=== PATIENT | female | born 2000 | race Native Hawaiian/Other Pacific Islander ===

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

== ENCOUNTER 2023-10-13 19:22 | Emergency (ER) | payer OTHER ==
[~2023-10-13] VITALS: Ht 149.9 cm; Wt 51.3 kg
[2023-10-13 19:45] VITALS: BP 117/77; TEMP 98.3
[2023-10-13] MEDS ORDERED: IBUPROFEN 600 MG TABLET ONE (19:49)
[2023-10-13] MEDS ORDERED: CLINDAMYCIN HCL 150 MG CAPSULE ONE (19:49)
[2023-10-13] MEDS: CLINDAMYCIN HCL 150 MG CAPSULE PO ONE (19:53)
[2023-10-13] MEDS: IBUPROFEN 600 MG TABLET PO ONE (19:53)
[2023-10-13] MEDS ORDERED: CLIN300C12 PO (20:02)
[2023-10-13 20:10] VITALS: O2SAT 97
== END 2023-10-13 20:11 | disposition home or self-care (01) ==
LOC: ER 19:25
DX: K12.2 Cellulitis and abscess of mouth (principal); Z88.2 Allergy status to sulfonamides; Z88.8 Allergy status to other drugs, medicaments and biological substances

== ENCOUNTER 2024-12-11 02:21 | Emergency (ER) | payer OTHER ==
[~2024-12-11] VITALS: Ht 160 cm; Wt 64.4 kg
[~2024-12-11 02:21] MED LIST: CLIN300C12 PO
[2024-12-11] MEDS ORDERED: ACETAMINOPHEN W/ CODEINE#3 1 EA TABLET ONE (02:42)
[2024-12-11] MEDS ORDERED: ONDANSETRON 4 MG TAB.RAPDIS ONE (02:42)
[2024-12-11] MEDS ORDERED: ACET-907 PO (02:52)
[2024-12-11] MEDS: ACETAMINOPHEN W/ CODEINE#3 1 EA TABLET PO ONE (02:53)
[2024-12-11] MEDS: ONDANSETRON 4 MG TAB.RAPDIS SL ONE (02:54)
[2024-12-11 03:06] VITALS: BP 131/84; TEMP 98.3; O2SAT 99
== END 2024-12-11 03:07 | disposition home or self-care (01) ==
LOC: ER 02:23
DX: G89.29 Other chronic pain (principal); M54.6 Pain in thoracic spine; R11.2 Nausea with vomiting, unspecified; M41.9 Scoliosis, unspecified; Z88.1 Allergy status to other antibiotic agents; Z88.2 Allergy status to sulfonamides
CPT/HCPCS: 99283; Q0162